=== PATIENT | female | born 1945 | race Caucasian/White ===

== ENCOUNTER 2018-09-07 09:24 | Inpatient (IN) ==
[2018-09-07] MEDS ORDERED: NS 1,000 ML IV ONE (12:23)
[2018-09-07] MEDS ORDERED: ZOFRAN IV ONE (12:23)
[2018-09-07 13:13] LABS: BASO# 0.02 X1000 (0.0-0.2); BASO% 0.2 % (0.0-0.8); EOS# 0.06 X1000 (0.0-0.7); EOS% 0.7 % (0.0-10.0); HEMATOCRIT 42.7 % (37.0-47.0); HEMOGLOBIN 14.3 g/dL (12.0-16.0); LYMPH% 25.7 % (20.5-51.1); MCHC 33.5 g/dL (33-37); MCV 86.6 FL (81-99); MONO# 0.54 X1000 (0.11-0.59); MONO% 6.3 % (1.7-9.3); MPV 11.2 FL (7.4-10.4); NEUT# 5.74 X1000 (1.4-6.5); NEUT% 67.1 % (42.2-75.2); PLT 223 X1000 (130-400); RBC 4.93 XMIL (4.2-5.4); RDW 14.9 % (11.5-14.5); WBC 8.56 X1000 (4.8-10.8)
[2018-09-07 13:20] LABS: INR 0.95; PROTIME 13.4 Seconds (11.0-16.0)
[2018-09-07 13:21] LABS: PTT 33.3 Seconds (22.3-41.8)
--- NOTE | 2018-09-07 13:31 | EKG Report ---
Test Performed on : 09/07/2018 1:06:24 PM Test Reason : sob Blood Pressure : / mmHG Vent. Rate : 081 BPM Atrial Rate : 081 BPM P-R Int : 146 ms QRS Dur : 082 ms QT Int : 394 ms P-R-T Axes : 051 -41 037 degrees QTc Int : 457 ms Normal sinus rhythm. Left axis deviation Cannot rule out Anterior infarct (cited on or before 20-JUN-2014) Abnormal ECG When compared with ECG of 04-JAN-2016 18:06, No significant change was found Unconfirmed Result
[2018-09-07] MEDS ORDERED: NORCO-7.5 PO ONE ×2 (13:33→16:22)
[2018-09-07 13:35] LABS: AGAP 10; ALB/GLOB RATIO 1.3; ALBUMIN 3.8 g/dL (3.5-5.0); ALKALINE PHOSPHATASE 91 U/L (32-104); BUN 13 mg/dL (8-22); CALCIUM 9.3 mg/dL (8.8-10.2); CHLORIDE 102 mmol/L (98-107); CK PROFILE 49 U/L (24-173); COSMO 281; CREATININE 0.7 mg/dL (0.5-0.9); ESTIMATED GFR > 60; GLUCOSE 92 mg/dL (70-104); GOT 20 U/L (10-30); GPT 11 U/L (10-36); SODIUM 141 mmol/L (136-145); TCO2 29 mmol/L (25-35); TOTAL BILIRUBIN 1.07 mg/dL (0.20-1.00); TOTAL PROTEIN 6.7 g/dL (6.3-8.3)
--- NOTE | 2018-09-07 13:55 | Diag Imaging Result Doc PS360 ---
EXAM: CHEST-2 VIEWS 09/07/2018 HISTORY: SOB TECHNIQUE: PA and lateral chest COMMENT: There is minimal platelike atelectasis in the left base. Atelectasis seen previously in the right middle lobe on 01/04/2016 has resolved. IMPRESSION: Minimal left lower lobe atelectasis. Electronically signed by Luis Sawyer 09/07/2018 1:52 PM
--- NOTE | 2018-09-07 15:33 | Diag Imaging Result Doc PS360 ---
EXAM: CT ABD/PELVIS W/IV CONT ONLY 09/07/2018 HISTORY: abdomin pain BRBPR, Hx UC TECHNIQUE: This exam was performed using automated exposure control, adjustment of mA or kV according to patient size, and/or use of iterative reconstruction technique. COMMENT: The current examination is compared to 06/06/2014. There is a platelike opacity in the left lower lobe which was not present at the time the previous study. There is a pleural-based nodule posterior laterally in the left lower lobe on image 15 which was slightly smaller at the time the previous study and is likely a granuloma. There has been gastric bypass. There is a large calculus in the upper pole of the right kidney measuring almost 12 mm in diameter. This was smaller at the time the previous study. There is some cortical scarring also in the right upper pole. Both collecting systems appear to be somewhat distended, and more so than on the previous study. There are bilateral parapelvic cysts. The aorta is not distended and the mesenteric and renal arteries are patent. There is a small cortical cyst laterally in the left kidney. There is at least one small hepatic cysts in the left hepatic lobe and there is prominence of the intrahepatic and extrahepatic bile ducts. The common bile duct measures as much as 14 mm in diameter. This has increased from 10 mm at the time the previous study. There are no apparent stones. The pancreatic duct is also somewhat distended distally measuring over 5 mm. The spleen is not enlarged. The adrenal glands are not enlarged. The pancreas is otherwise unremarkable in appearance. There is mucosal thickening and pericolic inflammation around the splenic flexure of the colon. This was not present previously. There is a fat-containing ventral hernia. This is larger than on the previous study. There are some enlarged mesenteric nodes particularly on the left on image 58 where there is a node measuring 11 mm and diameter. This is larger than on the previous examination. Pelvis: There are multiple prominent and slightly enlarged mesenteric nodes the largest of which on image 84 measures over 11 mm. There is no evidence of free fluid. There has been hysterectomy. The regional skeleton appears to be intact and stable. IMPRESSION: Focal colitis in the area of the splenic flexure. The possibility of neoplastic disease cannot be excluded. Mesenteric adenopathy. Biliary and pancreatic ductal dilatation of uncertain etiology. Right nephrolithiasis. Electronically signed by Luis Sawyer 09/07/2018 3:31 PM
[2018-09-07] MEDS ORDERED: ZOSYN 3.375 GM in NS 50 ML IV ONE (16:05)
--- NOTE | 2018-09-07 16:07 | PROVIDER DOCUMENTATION ---
This chart was entered by Ariana Flores Scribe, acting as scribe for Salvador Mccarthy MD. HPI-Abdominal Pain/GI Problem - General Chief Complaint: GI Bleed Stated Complaint: RECTAL BLEEDING Time Seen by Provider: 09/07/18 12:01 Source: patient Allergies/Adverse Reactions: Patient Allergies Allergy/AdvReac Type Severity Reaction Status Date / Time morphine Allergy Severe ANAPHYLAXIS Verified 01/24/17 15:46 aspirin AdvReac Mild Unknown Verified 09/07/18 13:42 flurbiprofen [From Ansaid] AdvReac Unknown Verified 09/07/18 13:42 Home Medications: Home Medication List Medication Instructions Recorded Confirmed Last Taken Type Pantoprazole Sodium [Protonix] 40 mg PO DAILY 08/10/12 01/24/17 01/24/17 09:00 History Lorazepam [Ativan] 0.5 mg PO PRN PRN #0 tablet 06/09/14 01/24/17 01/23/17 21:00 Rx Cholecalciferol (Vitamin D3) 5,000 unit PO DAILY 06/20/14 01/24/17 01/24/17 09:00 History [Vitamin D3] Levothyroxine [Synthroid] 1 tab PO DAILY 01/04/16 01/24/17 01/24/17 07:00 History Hydrocodone/APAP 10 mg/325 mg 1 each PO BID 01/24/17 01/24/17 01/24/17 13:00 History [Scotts-10] Methylphenidate HCl 20 mg PO BID 01/24/17 01/24/17 01/24/17 09:00 History - History of Present Illness-ABD Nature of Presenting Problems: Patient is a 73 year old female who presents with generalized abdominal pain that started last night. Patient reports lightheadedness, diaphoresis, nausea a nd rectal bleeding with pain. States having 2 episodes of bright red rectal bleeding. History of ulcerative colitis and states last ulcerative colitis attack was in 2016. Report having a bowel resection [place] [address] Kohli. Abdominal Pain Onset Location: reports: generalized abdomen Pain Radiation: reports: no radiation Quality of Pain: reports: sharp, stabbing Severity in ED: reports: moderate Onset/Duration: reports: last night Timing: reports: still present Activities at Onset: reports: light activity Associated Symptoms: reports: diaphoresis, nausea, other (rectal bleeding and lightheaded) Dark Stools Present?: reports: bright red blood Bruising or Bleeding Gums?: No Similar Symptoms Previously?: Yes (present since last night) Recently seen or treated by another doctor?: No Review of Systems - Adult - REVIEW OF SYSTEMS - ADULT Constitutional: reports: no symptoms reported. denies: chills, fever, fatique Eyes: reports: no symptoms reported Ears, Nose, Mouth & Throat: reports: no symptoms reported Cardiovascular: reports: no symptoms reported Respiratory: reports: no symptoms reported Gastrointestinal: reports: see HPI, abdominal pain (generalized), nausea, rectal bleeding. denies: diarrhea, vomiting Genitourinary: reports: no symptoms reported Musculoskeletal: reports: no symptoms reported Integumentary: reports: no symptoms reported Neurological: reports: see HPI, other (lightheadedness). denies: dizzi ness/vertigo, headache/migraines, numbness, seizure, syncope Psychiatric: reports: no symptoms reported Endocrine: reports: no symptoms reported Hematologic/Lymphatic: reports: no symptoms reported Allergic/Immunologic: reports: no symptoms reported All Other Systems: Reviewed and Negative Past History - Adult - PAST MEDICAL HISTORY-ADULT Review of Records: reports: Nursing Assessment Review, Medications Reviewed, Social history reviewed & non-contributory. Major Childhood Illnesses: reports: denies history Cardiovascular: reports: denies history Respiratory: reports: asthma Gastrointestinal: reports: colitis, GERD, obstruction (colorectal prolapse), polyps, ulcer (PUD; bleeding ulcers) Obstetrical/Gynecological: reports: denies history Genitourinary: reports: denies history Musculoskeletal: reports: arthritis, chronic pain, fibromyalgia, osteoporosis Neurological: reports: TIA Psychiatric: reports: anxiety, depression Endocrine/Immune: reports: thyroid disorder (hypo) Other Conditions: reports: other (fibromyalgia) - PRIOR SURGERIES/PROCEDURES Surgical/Procedure History: reports: colonoscopy (3 months ago and had atleast 25 polyps still in colon.), cholecystectomy, hysterectomy, bowel surgery (revision of colorectal prolapse w/ partial colectomy), orthopedic (extremity) (leg Sx, knee Sx, thumb Sx), joint replacement (bilateral knee ), gastric bypass (2002), other (mulitple colon polypectomy ) - PRIOR HOSPITALIZATIONS Prior Hospitalizations: reports: for other non-related - IMMUNIZATION STATUS Childhood Immunizations: NUTD Flu Vaccine: NUTD - FAMILY HISTORY Family History: other (colon polyps) - SOCIAL HISTORY Smoking: cigarettes (former) Substance Use: denies Physical Exam-General - PHYSICAL EXAM-ADULT Initial Vital Signs Reviewed: Yes - CONSTITUTIONAL General Appearance: alert, mild distress, other (ill in appearance). negative: lethargic, slow to respond - HEAD, EARS, NOSE, MOUTH & THROAT HENMT: normal ENT inspection. negative: angioedema, hearing deficit - RESPIRATORY Respiratory: chest non-tender, lungs clear, normal breath sounds. negative: crackles, rhonchi - CARDIOVASCULAR Cardiovascular: normal peripheral pulses, regular rate, rhythm. negative: tachycardia, systolic murmur - GASTROINTESTINAL (ABDOMEN) Abdominal Exam: normal bowel sounds, soft, tenderness (diffuse. worse in LLQ). negative: guarding, rebound - GENITOURINARY Rectal Exam: deferred - MUSCULOSKELETAL Extremity: non-tender, normal inspection. negative: deformity, erythema, swelling - SKIN Integumentary: normal color, normal turgor, warm/dry. negative: cyanosis, ecchymosis, erythema, jaundice - NEUROLOGIC Neurologic: grossly normal. negative: aphasia, facial droop - PSYCHIATRIC Psych/Mental Status: normal mood/affect, oriented x 3. negative: paranoid Progress - PLAN OF CARE/RESULTS Progress/Plan/Lab Results: Vital Signs - 8 hr 09/07/18 09:26 Temperature 99.2 F Pulse Rate 82 Respiratory Rate 18 Blood Pressure 147/87 O2 Sat by Pulse Oximetry 98 A/P: GI bleeding colitis. Will admit. Pt with UC and pt appears vert ill. Jiang CNRP will admit. vitals stable. Result Diagrams: 09/07/18 12:48 09/07/18 12:48 - EKG 1 Time of EKG reading by physician:: 13:06 EKG Read and Signed by:: Salvador Mccarthy EKG Interpretation (*Must complete 3 of following elements*): Abnormal Rate: 81 Rhythm: normal sinus rhythm [place]: left [place] Interval: normal Comments: cannot rule out anterior infarct, age undetermined - XRAY 1 XRAY Study: Chest Impression: Abnormal ([facility] [address] , [address], [place] [address] Department of Imaging Patient: MATTHEW FLORES Date: 09/07/18#: [id number] : 8ADM Status: REG ERAcct#: [id number] Age/Sex: 73/FRoom/Bed: Loc: ED Ordering Physician: Salvador Mccarthy MD Family Physician: Brittany Barajas MD Reason for Procedure: SOB Signed EXAM: CHEST-2 VIEWS 09/07/2018 HISTORY: SOB TECHNIQUE: PA and lateral chest COMMENT: There is minimal platelike atelectasis in the left base. Atelectasis seen previously in the right middle lobe on 01/04/2016 has resolved. IMPRESSION: Minimal left lower lobe atelectasis. Electronically signed by Luis Sawyer 09/07/2018 1:52 PM 09/07/18 1352 Interpreting Physician: Luis Sawyer MD Dictated Date/Time: 09/07/18 1351 cc: Salvador Mccarthy MD; Brittany Barajas MD) Departure - Departure Date of Disposition Decision: 09/07/18 Time of Disposition Decision: 16:06 DIAGNOSIS: Colitis, Gastrointestinal bleeding, lower Disposition: ADMITTED INPATIENT 09 Certified Medical Emergency: Emergent Condition: Stable Additional Freetext Instructions: We have examined and treated you today on an emergency basis only. This was not a substitute for, or an effort to provide, complete medical care. In most cases, you must let your doctor check you again. Tell your doctor about any new or lasting problems. We cannot recognize and treat all injuries or illnesses in one Emergency Department visit. If you had special tests, such as X-rays or CT scans, will be reviewed by radiologist and will call you if there are any new suggestions Follow up with primary care provider in 1 to 2 days if no improvement. If you do not have a primary care provider, you need to choose one as soon as possible. Take medicines as prescribed. Monitor for any side effects or adverse events from medications. If any side effect, adverse event or rash develops, or if you suspect any other adverse reaction to the medication, then discontinue the medication immediately and contact clinic /PCP or go to the nearest ER. Narcotic meds / sedative meds instruction - patent advised not to drive, operate any machinery or go into water after taking meds as it may impair mental ability to react to the situation in an appropriate manner . Continue other current medicines. Follow up with PCP within 24-48 hours, or sooner if symptoms worsen or fail to improve. Patient / guardian verbalizes understanding of treatment plan, medication, and side effects and agrees with treatment plan. Patient leaves ER in stable condition and ambulatory state. Return to ER as needed. Discharge instructions reviewed verbally and given to patient in written form. Follow up with primary care provider. Referrals and Follow-Ups: Brittany Barajas MD [Primary Care Provider] - - Critical Care Note This patient required my direct & personal management of CC.: No Attestation - Physician/ PATRICIA Attestation Patient care was provided by Advanced Practice Provider:: No The physician spent face to face time with patient:: Yes Advanced Practice Provider documentation review:: Supervising physician onsite and consulted in the evaluation and care of this patient. The physician did have a face to face encounter with the patient. This chart was documented by the indicated scribe, (Ariana Flores Scribe) and accurately reflects the services I performed and decisions made by me, Salvador Mccarthy MD, as attested by the provider's signature.
[2018-09-07] MEDS ORDERED: SODIUM CHLORIDE 0.9% INJ SCH (18:00)
--- NOTE | 2018-09-07 18:10 | HISTORY AND PHYSICAL ---
CHIEF COMPLAINT: Bloody stool. HISTORY OF PRESENT ILLNESS: This is a 73-year-old female with a history of ulcerative colitis, who presents to the emergency room complaining of 4 stools containing bright red blood over the last 24 hours. She does state that her last attack was in 2016 and this is consistent with that prior attack. She describes a feeling of needing to have a bowel movement with some sharp stabbing lower quadrant pain that is relieved once she does have a bowel movement. She has had some nausea but no vomiting. CT scan of the abdomen and pelvis was performed which revealed focal colitis in the area of the splenic flexure, mesenteric adenopathy with the possibility neoplastic disease cannot be excluded. In the emergency room, she was given IV hydration as well as Zosyn and is being admitted for further evaluation and treatment. PAST MEDICAL HISTORY: 1. Ulcerative colitis.- reported by pt - pathology does not confirm diagnosis. 2. Gastroesophageal reflux disease. 3. Hypothyroid. 4. Hypertension. 5. History of gastrointestinal bleed. 6. Colon polyps. PAST SURGICAL HISTORY: 1. Colon resection in 2013. 2. Cholecystectomy. SOCIAL HISTORY: She denies alcohol, tobacco, or illicit drug use. ALLERGIES: 1. Morphine. 2. Aspirin. HOME MEDICATIONS: A list will be obtained by the nursing staff and once verified, will review and restart as appropriate. REVIEW OF SYSTEMS: Discussed with the patient with pertinent positives stated in the HPI. She denied any syncope, dizziness, any chest pain, palpitations, any night sweats, recent weight loss or weight gain, any black or bloody vomitus, any hematuria, dysuria, frequency, urgency. PHYSICAL EXAMINATION: GENERAL: This is a 73-year-old female who is lying in the bed in no distress. VITAL SIGNS: Blood pressure is 127/69 with a heart rate of 77, respirations are 14, temperature is 98.5 degrees with room air saturations 96% to 98%. EYES: Pupils equal, round, react to light. EOMs are intact. Sclerae are anicteric. HEENT: Head is normocephalic, atraumatic. Mucous membranes are moist. NECK: Supple with trachea midline. CARDIOVASCULAR: Regular rate and rhythm. S1 and S2 appreciated. PULMONARY: Breath sounds are clear with no increased work of breathing noted. GASTROINTESTINAL: Abdomen is soft with diffuse tenderness, worse in the left lower quadrant with bowel sounds in all 4 quadrants. GENITOURINARY: She has no CVA nor suprapubic tenderness. EXTREMITIES: No clubbing, cyanosis, or edema. Calves are nontender bilateral. SKIN: Warm and dry. NEUROLOGIC: She is alert and oriented x3. LABORATORY DATA: WBC is 8.5 with hemoglobin 14.3, hematocrit 42.7, and platelets of 223,000. Sodium 141, potassium 4, BUN 13, creatinine 0.7 with a glucose of 92. Chest x- ray revealed minimal left lower lobe atelectasis. CT of the abdomen and pelvis reveals focal colitis in the area of the splenic flexure, mesenteric adenopathy with the largest node being over 11 mm, biliary and pancreatic ductal dilatation of uncertain etiology, right nephrolithiasis, possibility of neoplastic disease cannot be excluded. ASSESSMENT AND PLAN: 1.Hematochezia. We will obtain stool for ova and parasites, Clostridium difficile, lactoferrin, Shigella, stool culture and white blood cells, occult blood. 2. Abdominal pain. We will use Amagon q.6 hours as needed for pain. 3. We will repeat a CBC and CMP in the morning. We will consult Dr. Gillespie. She will be on a clear liquid diet. 4. Hypothyroid. We will check a TSH. Once her medicines are identified, we can continue. 5. For gastrointestinal prophylaxis, we will use Protonix, and for deep venous thrombosis prophylaxis, will use sequential compression devices. Further treatments pending hospital course. Dictated by RYAN Goode for Hermes Bolanos MD cc: RYAN Goode MD [facility]
[2018-09-07] MEDS: NS 1,000 ML IV SCH (18:16)
[2018-09-07] MEDS ORDERED: CIPRO 400 MG/D5W 400 MG/200 ML IVPB IV SCH (19:15)
--- NOTE | 2018-09-07 20:04 | PROGRESS NOTE ---
DATE: 09/07/2018 ADDENDUM: Briefly, this is a 73-year-old female presenting with some diarrhea and then she had hematochezia, which she has had previously and lower quadrant abdominal pain and ER evaluation was in my mind fairly unremarkable. Her white count was normal. Her hemoglobin and hematocrit was normal. Her CT showed a focal area of colitis in the splenic flexure, which was not rip roaring as far as what to do, but in any case, her exam was really unremarkable, and no rebound, guarding. She mostly had pain in her lower quadrants, which is not consistent with the findings on her CT scan. It is possible she has ulcerative colitis. She has had about 3 colonoscopies since 2015, which have variant diagnoses based on the pathology but not clearly any diagnoses of ulcerative colitis. In any case, the patient will be admitted, evaluated and seen. We will get stool samples. I am going to start antibiotics p.r.n. and follow. We will get a GI consult and monitor closely. cc: Hermes Bolanos MD
[2018-09-07 20:33] LABS: URINE SOURCE CLEAN CATCH
[2018-09-07 20:40] LABS: BILIRUBIN URINE NEGATIVE (NEGATIVE); BLOOD URINE SMALL (NEGATIVE); COLOR YELLOW; GLUCOSE URINE NEGATIVE (NEGATIVE); KETONE URINE NEGATIVE (NEGATIVE); LEUKOCYTES URINE MODERATE (NEGATIVE); NITRITE URINE NEGATIVE (NEGATIVE); PH URINE 6.5; PROTEIN URINE TRACE mg/dL (NEGATIVE); TURBIDITY URINE CLEAR (CLEAR); UROBILINOGEN URINE NORMAL (NORMAL)
[2018-09-07 20:42] LABS: UR EPITHELIAL CELLS <10 /HPF (<10); URINE BACTERIA NEGATIVE /HPF; URINE RBC <10 /HPF (<10); URINE WBC TNTC /HPF (<10)
[2018-09-07 21:14] LABS: SP GRAVITY URINE 1.029
[2018-09-07] MEDS: VITAMIN D PO SCH (21:54)
[2018-09-07] MEDS: NORCO-7.5 PO PRN (21:54)
[2018-09-07] MEDS: FLAGYL 500 MG/NS 500 MG/100 ML IVPB IV SCH (22:09)
[2018-09-07] MEDS: ZOSYN 3.375 GM in NS 50 ML IV SCH (23:19)
[2018-09-08] MEDS: FLAGYL 500 MG/NS 500 MG/100 ML IVPB IV SCH ×2 (04:57→10:47)
[2018-09-08] MEDS: ZOSYN 3.375 GM in NS 50 ML IV SCH ×2 (06:04→09:39)
[2018-09-08] MEDS: PROTONIX PO SCH (06:05)
[2018-09-08] MEDS: NS 1,000 ML IV SCH ×2 (06:08→17:21)
[2018-09-08] MEDS: NORCO-7.5 PO PRN ×2 (06:12→11:53)
[2018-09-08] MEDS: SYNTHROID PO SCH (06:21)
[2018-09-08 06:28] LABS: BASO# 0.02 X1000 (0.0-0.2); BASO% 0.3 % (0.0-0.8); EOS# 0.13 X1000 (0.0-0.7); HEMATOCRIT 39.7 % (37.0-47.0); HEMOGLOBIN 13.1 g/dL (12.0-16.0); LYMPH# 1.76 X1000 (1.2-3.4); LYMPH% 27.4 % (20.5-51.1); MCH 29.2 PG (27-31); MCV 88.4 FL (81-99); MONO# 0.53 X1000 (0.11-0.59); MONO% 8.2 % (1.7-9.3); MPV 11.1 FL (7.4-10.4); NEUT# 3.99 X1000 (1.4-6.5); NEUT% 62.1 % (42.2-75.2); PLT 196 X1000 (130-400); RBC 4.49 XMIL (4.2-5.4); RDW 14.9 % (11.5-14.5); WBC 6.43 X1000 (4.8-10.8)
[2018-09-08 07:16] LABS: AGAP 10; ALB/GLOB RATIO 1.1; ALBUMIN 3.2 g/dL (3.5-5.0); ALKALINE PHOSPHATASE 77 U/L (32-104); BUN 8 mg/dL (8-22); CALCIUM 8.5 mg/dL (8.8-10.2); CHLORIDE 106 mmol/L (98-107); COSMO 281; CREATININE 0.7 mg/dL (0.5-0.9); ESTIMATED GFR > 60; GLUCOSE 84 mg/dL (70-104); GOT 16 U/L (10-30); GPT 9 U/L (10-36); MAGNESIUM 1.7 mg/dL (1.5-2.7); POTASSIUM 3.6 mmol/L (3.5-5.1); SODIUM 142 mmol/L (136-145); TCO2 26 mmol/L (25-35); TOTAL BILIRUBIN 1.13 mg/dL (0.20-1.00)
[2018-09-08] MEDS ORDERED: SYNTHROID PO SCH (09:00)
[2018-09-08] MEDS: TRINTELLIX PO SCH (09:29)
[2018-09-08] MEDS: VITAMIN D PO SCH ×2 (09:29→21:09)
[2018-09-08] MEDS: VITAMIN B-12 SL SCH (09:32)
[2018-09-08] MEDS: THERA M PLUS PO SCH (09:32)
[2018-09-08] MEDS: ATIVAN PO PRN (13:33)
--- NOTE | 2018-09-08 15:47 | GASTROENTEROLOGY CONSULTATION ---
DATE: 09/08/2018 REASON FOR CONSULTATION: hematochezia SUBJECTIVE: Consult received. The patient is seen and examined. She presents with acute abdominal pain and rectal bleeding suggestive of ischemic colitis. She is hemodynamics stable. We will treat supportively with IV fluid and bowel rest. No indication for antibiotics at this time. We will discontinue. Discussed with primary team. Full consult note to follow. HPI: Ms. Cynthia Mott is a 73 year old woman with history of HTN, hypothyroidism, colonic polyps, IBS, RYGB, remote GI bleed from esophageal ulcer, OA, fibromyalgia, h/o partial colectomy from rectal prolapse, s/p rectocele repair who presents with acute episode of hematochezia that started 2 days ago. She reports developing acute LLQ pain described as stabbing that was followed by 4-5 episodes of small volume rectal bleeding without clots or melena. She reports associated nausea without vomiting, chills, sweats, presyncopal symptoms. She reports intermittent dysphagia to solids requiring esophageal dilations in the past. Her last colonoscopy was done by Dr. Pizarro in the last 1-2 years. She had colonoscopy in 2014 for rectal bleeding in the setting of colitis. She has intentional weight loss of 30 pounds over the last 2 years. ROS: as per HPI, otherwise 12-point ROS negative PMH: Gastroesophageal reflux disease, hypothyroidism, hypertension, colonic polyps, IBS, remote GI bleed from esophageal ulcer, OA, fibromyalgia PSH: h/o partial colectomy from rectal prolapse, s/p rectocele repair, CCY, RYGB, appendectomy, partial hysterectomy, bilateral knee repair, FH: Daughter has UC SH: no T/E/D MEDS: reviewed in chart ALL: morphine, aspirin, NSAIDs PE: VS T 97.9 HR 72 RR 18 BP 158/91 O2 sat 94% RA GEN: awake, alert, NAD HEENT: anicteric, MMM NECK: supple, no jvd PULM: CTAB, no wheezing CV: RRR, no murmurs ABD: soft, ND, BS present, TTP LLQ with voluntary guarding, no rebound EXT: no cce NEURO: nonfocal LABS: CMP unremarkable WBC 6.43 Hgb 13.1 <-- 14.3 plts 196K CRP 10.56 CT A/P 09/07 W/ W/O IMPRESSION: Focal colitis in the area of the splenic flexure. The possibility of neoplastic disease cannot be excluded. Mesenteric adenopathy. Biliary and pancreatic ductal dilatation of uncertain etiology. Right nephrolithiasis. A/P: Cynthia Mott is a 73 year old woman with history of HTN, hypothyroidism, colonic polyps, IBS, RYGB, remote GI bleed from esophageal ulcer, OA, fibromyalgia, h/o partial colectomy from rectal prolapse, s/p rectocele repair who presents with acute episode of abdominal pain and hematochezia found to have colitis in the splenic flexure area consistent with ischemic colitis. CT also shows some mesenteric adenopathy and "double duct" sign without obvious pancreatic mass or obstruction of uncertain etiology. LFTs are not elevated to suggest cholestasis. #Colitis: most likely ischemic; malignancy unlikely given reported; 3 colonoscopies within the last 4-5 years - normal WBC count and hgb - r/o cdiff, stool culture - will d/c antibiotics for now - continue supportive care - continue liquid diet; advance to GI soft as tolerated - continue IVFs, analgesics as needed, avoid hypotension and constipation; replete lytes prn #Abdominal pain: from above #Biliary/pancreatic duct dilation: unclear etiology; LFTs unremarkable; recommend MRCP/MRI to evaluate for stricture/mass; can be from chronic narcotic use #GERD: continue PPI #Dysphagia: rare and intermittent; cont PPI, dysphagia precautions; outpatient EGD once acute issues resolve Thank you for this consult. Will follow with you. Please call with questions [facility]
--- NOTE | 2018-09-08 16:14 | PROGRESS NOTE ---
DATE: 09/08/2018 SUBJECTIVE: Patient has no complaints. OBJECTIVE: Blood pressure is 148/87, heart rate 77, respiratory rate 17, temperature 97.8 degrees and 96% on room air.Cardiovascular: Regular rate and rhythm. Pulmonary: Bilateral breath sounds. Clear to auscultation. GI: Soft, nontender, and nondistended. Bowel sounds are positive. LABORATORY DATA: White count is 6, hemoglobin and hematocrit 13 and 39, and platelets 196,000. T bilirubin 1.113. Too numerous to count white blood cells. PROBLEM LIST: 1. Colitis, presumably ischemic based on risk factors. Dr. Lazar has evaluated the patient, and is recommending just close monitoring. We are going to pursue that. Continue hydration. General supportive measures and follow. He does not recommend continuing antibiotics and she has no white count. She has no fever. We will continue to monitor. Now with that being said, she may have a UTI. I am going to get a urine culture and follow. 2. Hypothyroid. We will continue regular medications and follow. DISPOSITION: Possibly home in the next 1 to 2 days at the discretion of GI service. cc: Hermes Bolanos MD
[2018-09-08] MEDS: ROCEPHIN 1 GM in NS 50 ML IV SCH (17:21)
[2018-09-08] MEDS: NORCO-10 PO PRN (21:09)
[2018-09-09] MEDS: SYNTHROID PO SCH (06:16)
[2018-09-09] MEDS: PROTONIX PO SCH (06:16)
[2018-09-09 06:42] LABS: BASO# 0.03 X1000 (0.0-0.2); BASO% 0.5 % (0.0-0.8); EOS# 0.13 X1000 (0.0-0.7); EOS% 2.3 % (0.0-10.0); HEMATOCRIT 40.3 % (37.0-47.0); HEMOGLOBIN 13.4 g/dL (12.0-16.0); LYMPH# 1.38 X1000 (1.2-3.4); LYMPH% 24.1 % (20.5-51.1); MCHC 33.3 g/dL (33-37); MCV 87.2 FL (81-99); MONO# 0.43 X1000 (0.11-0.59); MONO% 7.5 % (1.7-9.3); NEUT# 3.76 X1000 (1.4-6.5); NEUT% 65.6 % (42.2-75.2); PLT 205 X1000 (130-400); RBC 4.62 XMIL (4.2-5.4); RDW 14.7 % (11.5-14.5); WBC 5.73 X1000 (4.8-10.8)
[2018-09-09 07:21] LABS: AGAP 12; BUN 5 mg/dL (8-22); CALCIUM 8.8 mg/dL (8.8-10.2); CHLORIDE 107 mmol/L (98-107); COSMO 284; CREATININE 0.6 mg/dL (0.5-0.9); ESTIMATED GFR > 60; GLUCOSE 88 mg/dL (70-104); POTASSIUM 3.4 mmol/L (3.5-5.1); SODIUM 144 mmol/L (136-145); TCO2 25 mmol/L (25-35)
[2018-09-09] MEDS: POTASSIUM CHLORIDE 20 MEQ/SWI 20 MEQ/100 ML IVPB IV SCH ×2 (09:07→13:46)
[2018-09-09] MEDS: VITAMIN D PO SCH ×2 (09:08→20:30)
[2018-09-09] MEDS: THERA M PLUS PO SCH (09:08)
[2018-09-09] MEDS: TRINTELLIX PO SCH (09:09)
[2018-09-09] MEDS: NS 1,000 ML IV SCH ×2 (09:09→22:48)
[2018-09-09] MEDS: VITAMIN B-12 SL SCH (09:09)
--- NOTE | 2018-09-09 15:37 | PROGRESS NOTE ---
DATE: 09/09/2018 INTERVAL HISTORY: The patient's GI symptoms are markedly improved. Advancing diet. No new complaints, no acute events overnight. REVIEW OF SYSTEMS: Twelve point review of systems negative, except as per interval history. LABS: CBC unremarkable. Basic metabolic panel unremarkable aside from potassium of 3.4. VITALS: T-max 98.3, pulse 73, respirations 14, blood pressure 157/79, O2 sat 98% on room air. PHYSICAL EXAM: General: No acute distress. Vitals: As above. HEENT: Normocephalic, atraumatic. Moist mucous membranes. Neck: No cervical adenopathy. Cardiovascular: Regular rate and rhythm. No murmurs, rubs or gallops noted. Pulmonary: Clear to auscultation bilaterally. No wheezing, rales or rhonchi noted. Abdomen: Soft, nontender, nondistended. Bowel sounds positive. Extremities: Peripheral pulses intact. No clubbing, cyanosis or edema. Neurologic: Cranial nerves grossly intact. No focal deficits identified. Psychiatric: Normal mood and affect. Awake, alert and oriented x3. Skin: No new rashes or lesions identified. ASSESSMENT AND PLAN: 1. Colitis, likely ischemic. Gastroenterology following the patient. Advancing diet. Given multiple colonoscopies in the last several years. No plans for colonoscopy at this time. Awaiting further Gastroenterology recommendations, but if she tolerates advancing her diet without significant issue, then may be able to be discharged tomorrow. 2. Gastroesophageal reflux disease. Continue proton pump inhibitor. 3. Intermittent dysphagia. None currently. Continue proton pump inhibitor. Gastroenterology tentatively planning for outpatient esophagogastroduodenoscopy once acute issues resolve. 4. Biliary/pancreatic dilation. Unclear etiology, but liver function tests and bilirubin unremarkable. Gastroenterology planning on magnetic resonance cholangiopancreatography for further evaluation, but likely incidental finding. 5. Hypothyroidism. Continue Synthroid. 6. Hypokalemia. Will replete and monitor. 7. Possible urinary tract infection. Patient on Rocephin. Urine culture pending.
--- NOTE | 2018-09-09 15:38 | PROVIDER PROGRESS NOTE ---
Progress Note SUBJECTIVE: No acute overnight events. Afebrile. She reports improvement in abdominal pain. No N/V/F/CP/SOB/rectal bleeding. She reports constipation at baseline. OBJECTIVE: Last Vital Signs Temp 98.3 F 09/09/18 14:45 Pulse 73 09/09/18 15:21 Resp 14 09/09/18 15:21 BP 157/79 09/09/18 14:45 Pulse Ox 98 09/09/18 14:45 Height 5 ft 1 in Weight 153 lb GEN: awake, alert, NAD HEENT: anicteric, MMM NECK: supple, no jvd PULM: CTAB, no wheezing CV: RRR, no murmurs ABD: soft, ND, NABS, LLQ TTP with voluntary guarding, no peritoneal signs EXT: nocce NEURO: nonfocal LABS: 09/09/18 09/09/18 05:40 05:40 WBC 5.73 Hgb 13.4 Plt Count 205 Sodium 144 Potassium 3.4 L Chloride 107 Carbon Dioxide 25 Anion Gap 12 BUN 5 L Creatinine 0.6 A/P: Cynthia Mott is a 73 year old woman with history of HTN, hypothyroidism, colonic polyps, IBS, RYGB, remote GI bleed from esophageal ulcer, OA, fibromyalgia, h/o partial colectomy from rectal prolapse, s/p rectocele repair who presents with acute episode of abdominal pain and hematochezia found to have colitis in the splenic flexure area consistent with ischemic colitis. CT also shows some mesenteric adenopathy and "double duct" sign without obvious pancreatic mass or obstruction of uncertain etiology. LFTs are not elevated to suggest biliary obstruction. #Colitis: most likely ischemic; malignancy unlikely given colonoscopies in the last 2 years; labs unremarkable except mild hypokalemia - normal WBC count and hgb - r/o cdiff, stool culture - continue supportive care - continue liquid diet; advance to GI soft as tolerated - continue IVFs, analgesics as needed, avoid hypotension and constipation; replete lytes prn #Constipation: start miralax #Abdominal pain: from above #Biliary/pancreatic duct dilation: unclear etiology; LFTs unremarkable; MRCP/MRI ordered to evaluate for stricture/mass; can be from chronic narcotic use #GERD: continue PPI #Dysphagia: rare and intermittent; cont PPI, dysphagia precautions; outpatient EGD once acute issues resolve; tolerating liquids; advance to GI soft Will follow with you. Please call with questions
[2018-09-09] MEDS: ROCEPHIN 1 GM in NS 50 ML IV SCH (17:01)
[2018-09-09] MEDS: NORCO-10 PO PRN (17:58)
[2018-09-09] MEDS: MIRALAX PO SCH (20:30)
[2018-09-10] MEDS: NORCO-10 PO PRN ×2 (04:40→12:43)
[2018-09-10] MEDS: PROTONIX PO SCH ×2 (05:01→06:29)
[2018-09-10] MEDS: SYNTHROID PO SCH ×2 (05:01→06:29)
--- NOTE | 2018-09-10 09:03 | Diag Imaging Result Doc PS360 ---
MRI MRCP (ABD W/O CONTRAST) - 09/09/2018 INDICATION: dilated CBD and pancreatic duct TECHNIQUE: COMPARISON: CT from 09/07/2018 and 06/06/2014 FINDINGS: The gallbladder is absent. There is stable, long-standing benign dilation of the common bile duct measuring about 13 mm. The main pancreatic duct is not dilated. The main pancreatic duct measures about 2.9 mm maximally. There is extensive pancreatic atrophy. There are numerous peripelvic cysts on the left stable from prior. Stable long-standing nonobstructing right renal stone. No free fluid. No adenopathy. Stable small fat-containing ventral hernia. IMPRESSION: 1. Long-standing benign dilation of the common bile duct. No strictures or filling defects. 2. Significant pancreatic atrophy. No significant duct dilation. 3. No additional findings compared with the recent CT. Electronically signed by Geovanni Gant 09/10/2018 9:00 AM
[2018-09-10] MEDS: TRINTELLIX PO SCH (10:43)
[2018-09-10] MEDS: VITAMIN B-12 SL SCH (10:44)
[2018-09-10] MEDS: MIRALAX PO SCH (10:44)
[2018-09-10] MEDS: VITAMIN D PO SCH (10:44)
[2018-09-10] MEDS: THERA M PLUS PO SCH (10:44)
--- NOTE | 2018-09-10 13:25 | GASTROENTEROLOGY PROGRESS NOTE ---
DATE: 09/10/2018 ATTENDING PHYSICIAN: Dr. Schuler. PRIMARY DOCTOR: Dr. Barajas. PRIMARY ASSISTANT WOMEN'S SOCCER COACH: Dr. Pizarro. SUBJECTIVE: Patient resting in bed. She is feeling better. She denies any fevers, rigors, chills. Her abdominal pain is improving. She denies any nausea or vomiting. She moved her bowels today. The patient had a CT scan done on admission that showed evidence of focal colitis extending to the splenic flexure. Her last colonoscopy was done almost [address] Pizarro. The CT scan also showed evidence of mesenteric adenopathy. She was also noted to have biliary and pancreatic ductal dilation of uncertain etiology and right nephrolithiasis. Today, she had MRCP done, which showed: 1. Longstanding benign dilation of common bile duct. No strictures or filling defects. 2. Significant pancreatic atrophy. No significant ductal dilation. No additional findings compared to the recent CT. 3. There are numerous peripelvic cysts on the left stable from prior stable longstanding nonobstructing right renal stone noted. Stable small fat containing ventral hernia noted. The gallbladder is absent. 4. Going back to her records she had a colonoscopy done in [address] Stahl which showed evidence of acute colitis, left-sided benign-appearing colon polyps. Surgical anastomosis showed elective sigmoid colectomy due to rectal prolapse. 5. Internal hemorrhoids. External hemorrhoids. Subsequently, she had another colonoscopy done by Dr. Pizarro. According to the patient, that was benign. Her polyp biopsies from 2015 showed reactive colonic mucosa with melanosis coli, hyperplastic polyp, and she also had terminal ileal biopsy which showed no significant histological abnormalities. OBJECTIVE: Vital signs: Temperature of 98.1 degrees, pulse rate of 70, respiratory 16, blood pressure 152/83, satting 97% on room air. Body weight of 153 pounds. BMI 28.9 kg. General appearance: Moderately malnourished, lying in bed in no acute distress. HEENT: No pallor. No icterus. Pupils equal, react to light. Neck: Supple. Abdomen: Discomfort in the left upper quadrant, left lower quadrant. No rebound. Extremities: No cyanosis, clubbing. Neurologic: She was alert, awake and oriented x3. LABS: Her hemoglobin and hematocrit is 13.4 and 40.3, white count of 5.73, platelet count of 205. Sodium 140, potassium 3.4, chloride 107, bicarbonate 25, anion gap 12. BUN of 5, creatinine 0.6, glucose of 88, calcium 8.8, total protein is 6, albumin 3.2. Urinalysis shows positive white cells, moderate leukocytes. Her urine culture is showing no growth. Her stool for occult blood is positive. Other stool studies are currently pending. MRCP and CT scan reports described in HPI. IMPRESSION/PLAN: 1. Focal colitis in the splenic flexure, likely ischemic. The patient does have history of chronic constipation. In this regard, we will continue with the supportive care. We will follow up with the stool studies. Continue liquid diet, advance as tolerated. 2. History of constipation. She will be started on MiraLAX. She will continue MiraLAX once or twice daily at home. 3. Abdominal pain is improving likely from colitis. 4. Biliary and pancreatic duct dilation. Magnetic resonance cholangiopancreatography is negative for any kind of lesions; it is likely chronic from chronic narcotic use. 5. Reflux disease. She is continues on proton pump inhibitors. 6. Dysphagia. Continue to chew the food well. We will follow up in the office in a few weeks. At that time, we will decide about esophagogastroduodenoscopy and possible colonoscopy depending on her symptoms. 7. History of colon polyps, benign in nature per the last colonoscopy in 2014. The above plans discussed with the patient. All questions answered. Please call us with any further questions. cc: MD Brittany Diaz MD
[2018-09-10] MEDS: ATIVAN PO PRN (13:55)
[2018-09-10 14:47] VITALS: BP 145/86
--- NOTE | 2018-09-11 07:34 | DISCHARGE SUMMARY ---
ADMISSION DATE: 09/07/2018 DISCHARGE DATE: 09/10/2018 DISCHARGE DIAGNOSES: 1. Acute ischemic colitis leading to bright red blood per rectum. 2. Asymptomatic bacteriuria with negative urine culture. 3. Hypokalemia. OTHER DIAGNOSES: 1. Previous history of colitis with multiple colonoscopies in the past. 2. Asymptomatic and nonspecific biliary ductal dilatation. 3. Mesenteric adenopathy during this admission. 4. Right-sided nephrolithiasis of about 1.2 cm. 5. Past history of gastric bypass surgery. 6. Past history of fibromyalgia. 7. Past history of irritable bowel syndrome. 8. Past history of major depressive disorder. 9. Past history of hypothyroidism. 10. Past history of anxiety. CONSULTATION DURING HOSPITALIZATION: Gastroenterology Dr. Lazar. DISCHARGE MEDICATIONS: 1. Lorazepam 0.5 mg as needed every 8 hours for anxiety. 2. Vitamin B12 5000 mcg 1 tablet sublingually daily. 3. Multivitamin with minerals 2 tablets daily. 4. [place] 10 half a tablet every 6 hours as needed for pain. 5. Pantoprazole 40 mg daily. 6. Methylphenidate 10 mg p.o. as directed to be taken in the afternoon if needed. 7. Methylphenidate 20 mg tablet p.o. daily. 8. Levothyroxine 25 mcg daily. 9. Trintellix 10 mg p.o. daily. 10. Vitamin D3 2000 units p.o. b.i.d. 11. Levofloxacin 500 mg PO daily for 5 days. 12. Flagyl 500 mg TID for 5 days VITALS: At the time of discharge, temperature 98.1 degrees, pulse 70, respiratory rate 16, blood pressure 158/83 and saturating 97% on room air. PHYSICAL EXAMINATION: General: Patient does not appear in any acute distress. Oral cavity is moist. No pallor, cyanosis, clubbing, or icterus. Lungs: Air entry bilaterally equal. No wheeze, rhonchi, or crackles. Cardiovascular: S1, S2 normal. No murmur, rub, or gallop. Abdomen: Soft, largely nontender. Active bowel sounds. No lower extremity edema. Neurologic: She is alert and oriented x3. LABORATORY: Significant lab during hospital admission, her WBC was 8.5, hemoglobin was 13.4 at the time of discharge and platelet was 205,000. Her coagulation profile suggested INR and PTT were within normal range. BMP had normal electrolytes with BUN of 13 and creatinine of 0.6 with normal kidney function. Her total bilirubin was 1.13. Significant microbiology during hospital admission. Urine culture did not have any growth. Stool occult blood test was positive. Clostridium difficile toxin analysis and stool cultures were pending. IMAGING: Abdomen and pelvis CT on admission had focal colitis in the area of splenic flexure with mesenteric adenopathy. There was also biliary and pancreatic duct dilatation of unclear etiology. Chest x-ray had left lower lobe atelectasis. MRCP performed on 09/09 had long-standing benign dilatation of common bile duct without any strictures or filling defects. Significant pancreatic atrophy. No significant duct dilatation. No additional findings compared with recent CT. HOSPITAL COURSE SUMMARY: Ms. Mott is a 73 year old lady who came in with 4 episodes of bright red blood per rectum in about 24 hours duration. Apparently, the patient was in her normal state and then she started having at midnight she woke up, and had some abdominal cramp and/or urge to defecate. Her abdominal pain gradually increased in severity until she had a bowel movement following which she had relief of abdominal pain except mild cramping. She also had mild nausea without vomiting. She has had 4 such episodes over a span of 24 hours, and so she decided to come to the emergency room. In the emergency room, her vitals were normal without any tachycardia, fever, or hypotension. CT scan of the abdomen and pelvis had detected focal colitis affecting left-sided splenic flexure so she was admitted for intravenous fluids, intravenous antibiotics, and further GI intervention. After evaluating the CAT scan, it was thought that her focal ischemic colitis of the splenic flexure was likely ischemic in etiology rather than infectious. Antibiotics were discontinued. The patient was managed conservatively. She was hemodynamically stable, and the fact that she has had multiple colonoscopies in the last 5 years, which were unrevealing, no further colonoscopy was performed. While inside the hospital, patient's symptoms had resolved except a small very mucoid bowel movement on the day of discharge with positive fecal occult blood test. However, her hemoglobin was stable. MRI and MRCP was performed for the patient's dilated biliary duct, which had just suggested nonspecific biliary dilatation without any identifiable neoplastic process. At the time of discharge, the patient was hemodynamically stable. Her blood count had remained stable, and she was tolerating softer diet well and she was deemed appropriate for discharge. Patient was provided instructions about her left lower lobe granuloma right- sided kidney stone. She was advised to follow up with urologist, director of corporate sales, and outpatient Cardiology. She was also advised to discuss with her heart doctor about need for oncology social work. All of her questions were answered satisfactorily. TIME SPENT: More than 30 minutes were spent in discharging this patient. cc: Santiago Schuler MD MTDD
== END 2018-09-10 15:32 | disposition home or self-care (01) | DRG 395 ==
LOC: ED 09:24 → 4N 09:24 → SUATTDRO 16:55
PROVIDERS: ATTEND Internal Medicine
CPT/HCPCS: 71020; 71046; 74177; 74181; 80048; 80053; 81001; 82270; 82550; 83520; 83630; 83735; 84443; 84484; 85025; 85610; 85651; 85730; 86140; 86255; 86671; 87045; 87046; 87088; 87177; 87205; 87324; 87427; 87798; 88313; 89055; 93005; 94761; 94799; 96361; 96365; 96375; 99285; A9270; J0696; J0744; J2405; J2543; J3480; J7030; Q9967; S0030